=== PATIENT | female | born 1960 | race Caucasian/White ===

== ENCOUNTER 2018-10-08 14:36 | Emergency (ER) | payer SELFPAY ==
[2018-10-08] MEDS ORDERED: Sodium Chloride 0.9% 1,000 ML IV ONE (15:30)
[2018-10-08 15:46] LABS: HCG,QUALITATIVE URINE NEGATIVE (NEGATIVE); URINE BILIRUBIN NEGATIVE (NEGATIVE); URINE BLOOD NEGATIVE (NEGATIVE); URINE CLARITY Clear (Clear); URINE COLOR Straw (YELLOW); URINE GLUCOSE (UA) NORMAL (Normal); URINE LEUKOCYTE ESTERASE NEG Leu/uL (Negative); URINE PROTEIN NEGATIVE (NEGATIVE); URINE UROBILINOGEN NORMAL mg/dL (0.2-1.0)
[2018-10-08] MEDS ORDERED: Sodium Chloride 0.9% 1,000 ML ONE (15:52)
[2018-10-08 16:17] LABS: BASO # 0.1 K/uL (0.0-0.2); BASO % 0.7 % (0.0-2.0); EOS % 0.3 % (0.0-4.0); HEMOGLOBIN 13.6 g/dL (11.0-16.0); LYMPH # 1.9 K/uL (1.0-4.3); LYMPH % 18.5 % (20.0-40.0); MEAN CELL VOLUME 95.3 fL (81.0-99.0); MEAN CORPUSCULAR HEMOGLOBIN 32.5 pg (27.0-31.0); MEAN CORPUSCULAR HGB CONC 34.1 g/dL (33.0-37.0); MEAN PLATELET VOLUME 7.7 fL (7.2-11.7); MONO # 0.6 K/uL (0.0-0.8); MONO % 6.1 % (0.0-10.0); NEUT # 7.8 K/uL (1.8-7.0); NEUT % 74.4 % (50.0-75.0); RBC 4.19 Mil/uL (3.80-5.20)
[2018-10-08 16:24] LABS: WHITE BLOOD COUNT 10.5 K/uL (4.8-10.8)
--- NOTE | 2018-10-08 16:30 | RAD ---
Date of service: 10/08/2018 PROCEDURE: Radiographs of the chest and abdomen (obstructive series) HISTORY: Abd Pain COMPARISON: No prior. TECHNIQUE: AP radiograph of the chest, with upright and supine radiographs of the abdomen. FINDINGS: CHEST: Lungs: Clear. Cardiovascular: Normal size heart. No pulmonary vascular congestion. No aortic atherosclerotic calcification present Pleura: No pleural fluid. No pneumothorax. Other findings: None. ABDOMEN AND PELVIS: Bowel: Unremarkable bowel gas pattern. No evidence of mechanical obstruction. Free air: None. Bones: Unremarkable. Other findings: IUD identified midline in the pelvis. IMPRESSION: No significant or acute findings to account for/ related to the clinical presentation.
--- NOTE | 2018-10-08 16:39 | C.PDOC ---
History Of Present Illness 58 y/o female presents to the ER complaining of "colicky" lower abdominal pain which has been present since last night. Patient states that she feels heat to the area. Patient reports that her urine felt hot when she was urinating. She notes that her last bm was today, the bm was normal. She notes that she took anti gas medications with mild relief. Denies having fever, chills, nausea, vomiting, dysuria, hematuria, vaginal pain, vaginal discharge, and vaginal bleeding. Time Seen by Provider: 10/08/18 14:58 Chief Complaint (Nursing): Abdominal Pain History Per: Patient History/Exam Limitations: no limitations Onset/Duration Of Symptoms: Days Current Symptoms Are (Timing): Still Present Severity: Moderate Past Medical History Reviewed: Historical Data, Nursing Documentation, Vital Signs Vital Signs: Last Vital Signs Temp 98.4 F 10/08/18 14:43 Pulse 20 L 10/08/18 14:43 Resp 18 10/08/18 14:43 BP 129/84 10/08/18 14:43 Pulse Ox 96 10/08/18 14:43 - Medical History PMH: HTN Surgical History: No Surg Hx Family History: States: No Known Family Hx - Social History Hx Alcohol Use: Yes Hx Substance Use: No - Immunization History Hx Tetanus Toxoid Vaccination: No Hx Influenza Vaccination: No Review Of Systems Except As Marked, All Systems Reviewed And Found Negative. Constitutional: Negative for: Fever, Chills Gastrointestinal: Positive for: Abdominal Pain. Negative for: Nausea, Vomiting, Constipation Genitourinary: Negative for: Dysuria, Hematuria, Vaginal Discharge, Vaginal Bleeding Physical Exam - Physical Exam Appears: Non-toxic, No Acute Distress Skin: Normal Color, Warm, Dry Head: Atraumatic, Normacephalic Eye(s): bilateral: Normal Inspection Nose: Normal Oral Mucosa: Moist Neck: Supple Chest: Symmetrical Cardiovascular: Rhythm Regular Respiratory: Normal Breath Sounds, No Rales, No Rhonchi, No Wheezing Gastrointestinal/Abdominal: Soft, Tenderness (mild suprapubic tenderness), No Guarding, No Rebound Neurological/Psych: Oriented x3, Normal Speech ED Course And Treatment - Laboratory Results Result Diagrams: 10/08/18 16:10 10/08/18 16:10 O2 Sat by Pulse Oximetry: 96 (RA) Pulse Ox Interpretation: Normal - Other Rad X-Ray-Abd X-Ray: Viewed By Me, Read By Radiologist Interpretation: Date of service: 10/08/2018. PROCEDURE: Radiographs of the chest and abdomen (obstructive series). HISTORY: Abd Pain. COMPARISON: No prior. TECHNIQUE: AP radiograph of the chest, with upright and supine radiographs of the abdomen. FINDINGS: CHEST: Lungs: Clear. Cardiovascular: Normal size heart. No pulmonary vascular congestion. No aortic atherosclerotic calcification present. Pleura: No pleural fluid. No pneumothorax. Other findings: None. ABDOMEN AND PELVIS: Bowel: Unremarkable bowel gas pattern. No evidence of mechanical obstruction. Free air: None. Bones: Unremarkable. Other findings: IUD identified midline in the pelvis. IMPRESSION: No significant or acute findings to account for/ related to the clinical presentation. Medical Decision Making Medical Decision Making: Impression: Abdominal Pain Plan: * Labs * UA * X-Ray- Abd. Obs. Series * IV Fluids * Pepcid IV * Toradol IV On re-examination, patient is resting comfortably in no acute distress. Patient reports improvement of symptoms. Patient feels comfortable going home and will be discharged. Patient given follow up instructions. Instructed to return to ER if symptoms worsen or new symptoms arise. Disposition Counseled Patient/Family Regarding: Studies Performed, Diagnosis, Need For Follo wup, Rx Given - Disposition Referrals: [facility] [Outside] [facility] [Outside] Disposition: HOME/ ROUTINE Disposition Time: 17:14 Condition: IMPROVED Additional Instructions: Vaya a ramos mdico o la clnica en 2-5 rosario sin falta, para mas evaluacin. [place] los medicamentos ashley indicado. Volver a la pushpa de emergencia en cualquier momento si los sntomas persisten o empeoran. Prescriptions: Dicyclomine [Bentyl] 10 mg PO QID #20 cap Instructions: Acute Abdomen (Belly Pain), Adult (DC) Print Language: DIVEHI - POA Present On Arrival: None - Clinical Impression Clinical Impression: Abdominal pain - PA / AUDIT PRACTICE INTERN / Resident Statement MD/DO has reviewed & agrees with the documentation as recorded. - Scribe Statement The provider has reviewed the documentation as recorded by the Scribe Farheen Mann Provider Attestation All medical record entries made by the Scribe were at my direction and personally dictated by me. I have reviewed the chart and agree that the record accurately reflects my personal performance of the history, physical exam, medical decision making, and the department course for this patient. I have also personally directed, reviewed, and agree with the discharge instructions and disposition.
[2018-10-08 16:55] VITALS: BP 133/83; PULSE 94; TEMP 99
[2018-10-08 16:58] LABS: BLOOD UREA NITROGEN 13 mg/dL (7-17); CALCIUM 9.5 mg/dl (8.6-10.4); GFR NON-AFRICAN AMERICAN > 60
[2018-10-08 17:09] LABS: ALB/GLOB RATIO 1.2 (1.0-2.1); ALBUMIN 4.6 g/dL (3.5-5.0); ALT/SGPT 46 U/L (9-52); AST/SGOT 60 U/L (14-36)
[2018-10-08 17:16] VITALS: O2SAT 96
[2018-10-08 17:33] VITALS: RESP 16
== END 2018-10-08 17:32 | disposition home or self-care (01) ==
LOC: C.ER 14:36
DX: R10.30 Lower abdominal pain, unspecified (principal)
CPT/HCPCS: 74022; 80053; 81001; 84703; 85025; 87086; 96361; 96374; 96375; 99285; J1885; J7030

== ENCOUNTER 2018-11-14 13:08 | Emergency (ER) | payer OTHER ==
[2018-11-14 13:31] VITALS: BP 142/97; PULSE 86; RESP 20; TEMP 98.7; O2SAT 100
--- NOTE | 2018-11-14 14:37 | C.PDOC ---
History Of Present Illness 58 year old female presents to the emergency department with left wrist pain and swelling since she fell yesterday. Patient states that her kitchen floor was wet, and she slipped and fell and broke her fall with her left arm. Patient denies head injury, LOC, or sensory changes. Time Seen by Provider: 11/14/18 13:40 Chief Complaint (Nursing): Finger,Hand,&Wrist History Per: Patient History/Exam Limitations: no limitations Onset/Duration Of Symptoms: Days (1) Current Symptoms Are (Timing): Still Present Quality: "Pain" Past Medical History Reviewed: Historical Data, Nursing Documentation, Vital Signs Vital Signs: Last Vital Signs Temp 98.7 F 11/14/18 13:28 Pulse 86 11/14/18 13:28 Resp 20 11/14/18 13:28 BP 142/97 H 11/14/18 13:28 Pulse Ox 100 11/14/18 13:28 - Medical History PMH: HTN Surgical History: No Surg Hx Family History: States: No Known Family Hx - Social History Hx Alcohol Use: Yes Hx Substance Use: No - Immunization History Hx Tetanus Toxoid Vaccination: No Hx Influenza Vaccination: No Review Of Systems Musculoskeletal: Positive for: Arm Pain (left wrist) Neurological: Negative for: Weakness, Numbness, Other (loss of conscious, head injury) Physical Exam - Physical Exam Appears: Non-toxic, In Acute Distress (moderate pain) Skin: Warm, Dry Head: Atraumatic, Normacephalic Eye(s): bilateral: Normal Inspection Neck: Normal, Supple Extremity: No Normal ROM (limited ROM at the left wrist), No Tenderness (at the elbow), Capillary Refill (< 2 seconds), Deformity (to the lateral aspect of the left wrist), Swelling (moderate swelling to the left wrist) Pulses: Left Radial: Normal, Right Radial: Normal Neurological/Psych: Oriented x3, Normal Motor, Normal Sensation ED Course And Treatment O2 Sat by Pulse Oximetry: 100 (RA) Pulse Ox Interpretation: Normal - Other Rad XR Left Hand and Wrist X-Ray: Interpreted by Me, Viewed By Me Interpretation: Distal radius fracture at the left wrist. Progress Note: Plan: XR Left Hand and Wrist. Volar splint and sling applied. Patient instructed to follow up with orthopedic or hand physician. Disposition Counseled Patient/Family Regarding: Diagnosis, Need For Followup, Rx Given - Disposition Referrals: Bryant Lucas MD [Staff Provider] - Yanick Boyer MD [Staff Provider] - Disposition: HOME/ ROUTINE Disposition Time: 14:45 Condition: STABLE Additional Instructions: FOLLOW UP WITH HAND SURGERY/ORTHOPEDICS WITHIN 1 WEEK USE MEDICATIONS NEEDED FOR PAIN RETURN TO ER IF SYMPTOMS WORSEN SEGUIR CON CIRUGA DE MANO / ORTOPEDIA EN JOHANA SEMANA USAR MEDICAMENTOS SEAN SE NECESITA PARA EL DOLOR REGRESAR A ER SI LOS SNTOMAS SE empeoraran Prescriptions: Acetaminophen [Tylenol 325mg tab] 650 mg PO Q6 PRN #30 tab PRN Reason: pain/fever Hydrocodone/Acetaminophen [Hydrocodone-Acetamin 5-325 mg] 1 each PO Q6 PRN #15 tablet PRN Reason: PAIN Instructions: Radius Fracture (DC) Forms: [employer] (Icelandic) Print Language: INDONESIAN - POA Present On Arrival: Falls Or Trauma - Clinical Impression Clinical Impression: Distal radius fracture, left - Scribe Statement The provider has reviewed the documentation as recorded by the Scribe (Lamberto Peters) Provider Attestation: All medical record entries made by the Scribe were at my direction and personally dictated by me. I have reviewed the chart and agree that the record accurately reflects my personal performance of the history, physical exam, medical decision making, and the department course for this patient. I have also personally directed, reviewed, and agree with the discharge instructions and disposition.
--- NOTE | 2018-11-14 14:40 | RAD ---
PROCEDURE: Left wrist radiographs Left hand radiographs HISTORY: left wrist pain after fall, r/o fx COMPARISON: None available. FINDINGS: BONES: Comminuted impacted fracture of the distal radius with intra-articular extension. The remainder the visualized osseous structures appear intact without acute displaced fracture. JOINTS: No dislocation. SOFT TISSUES: Soft tissue swelling. No evidence of radiopaque foreign body OTHER FINDINGS: None. IMPRESSION: Comminuted impacted fracture of the distal radius with intra-articular extension. Associated soft tissue swelling.
== END 2018-11-14 15:45 | disposition home or self-care (01) ==
LOC: C.ER 13:08
DX: S52.502A Unspecified fracture of the lower end of left radius, initial encounter for closed fracture (principal); W01.0XXA Fall on same level from slipping, tripping and stumbling without subsequent striking against object, initial encounter; I10 Essential (primary) hypertension